=== PATIENT | male | born 1970 | race Caucasian/White ===

== ENCOUNTER 2017-12-13 10:32 | Emergency (ER) | payer OTHER ==
[~2017-12-13] VITALS: Ht 182.9 cm; Wt 81.6 kg
[~2017-12-13 10:32] MED LIST: CYCLOBENZAPRINE10 M1 PO; NAPROXEN500 M2 PO
[2017-12-13] MEDS ORDERED: METHADONE10 MG/1 M2 PO (11:28)
[2017-12-13] MEDS ORDERED: TRAZODONE HCL100 M1 PO (11:28)
[2017-12-13] MEDS ORDERED: HYDROXYZINE PAM50 M1 PO (11:29)
--- NOTE | 2017-12-13 11:41 | ED THROAT/DENTAL COMPLAINT ---
History of Present Illness General Chief Complaint: General Adult Stated Complaint: ? FB IN THROAT Source: patient Exam Limitations: no limitations Vital Signs & Intake/Output Vital Signs & Intake/Output Vital Signs Date Time Temp Pulse Resp B/P B/P Pulse O2 O2 Flow FiO2 Mean Ox Delivery Rate 12/13 1441 98.2 58 18 134/75 98 Room Air 12/13 1139 Room Air 12/13 1048 97.5 81 16 151/83 96 Room Air Allergies Coded Allergies: No Known Allergies (11/19/17) Reconcile Medications Hydroxyzine Pamoate 50 MG CAPSULE 1 CAP PO BID MENTAL HEALTH (Reported) Methadone HCl 10 MG/ML ORAL.CONC 90 MG PO DAILY MAINTENCE (Reported) Trazodone HCl 100 MG TABLET 1 TAB PO QPM SLEEP (Reported) Triage Note: PT STATES THAT HE HAS SOMETHING LODGED IN HIS THROAT. PT STATES THAT IT FEELS SHARP AND HE CAN FELL IT. PT STATES "I ATE 2 DAYS AGO AND FELT LIKE I SWALLOWED A PIECE OF METAL AND I TRIED TO MAKE MYSELF THROW UP BUT COULD NOT" PT STATES THAT HE JUST CAME FROM GETTING HIS METHADONE. Triage Nurses Notes Reviewed? yes Onset: Abrupt Duration: day(s):, constant, continues in ED Timing: recent history Severity: moderate, severe No Modifying Factors: none HPI: 47-year-old male comes into emergency room with complaints of feeling like something stuck in his throat. Patient reports that the other day he was eating him and felt a pain when he swallows like there was something possibly in there. Since then he has had the pain on the right side of his neck and it hurts when he swallows. He reports he feels like it swollen. Denies any fever chills vomiting. Denies any other associated symptoms. (Edwin Robertson) Past History Travel History Traveled to [place] past 21 day No Medical History Any Pertinent Medical History? see below for history Neurological: TIA Respiratory: asthma Psychiatric: opioid dependence Cancer(s): TESTICULAR CANCER Surgical History Surgical History: non-contributory Psychosocial History What is your primary language [place]dean Tobacco Use: Current Daily Use Daily Tobacco Use Amount/Type: => 5 Cigarettes daily Family History Hx Contributory? No (Edwin Robertson) Review of Systems Review of Systems Constitutional: Reports: no symptoms. EENTM: Reports: see HPI. Respiratory: Reports: no symptoms. Cardiovascular: Reports: no symptoms. GI: Reports: no symptoms. Genitourinary: Reports: no symptoms. Musculoskeletal: Reports: no symptoms. Skin: Reports: no symptoms. Neurological/Psychological: Reports: no symptoms. Hematologic/Endocrine: Reports: no symptoms. Immunologic/Allergic: Reports: no symptoms. All Other Systems: Reviewed and Negative (Edwin Robertson) Physical Exam Physical Exam General Appearance: well developed/nourished, no apparent distress, alert Head: atraumatic, normal appearance Eyes: Bilateral: normal appearance. Nose: normal inspection Mouth/Throat: normal mouth inspection, pharynx normal Neck: normal inspection, supple, full range of motion, trachea midline, tenderness right anterior neck Cardiovascular/Respiratory: no respiratory distress Back: normal range of motion Neurologic/Psych: awake, alert, oriented x 3 Skin: intact, normal color Core Measures ACS in differential dx? No Sepsis Present: No Sepsis Focused Exam Completed? No (Edwin Robertson) Progress Differential Diagnosis: carious tooth, epiglottitis, Ludwigs angina, odontogenic abscess, dixon-tonsillar abscess, esophogeal abrasion, foreign body, strep pharyngitis, Plan of Care: Orders Procedure Date/time Status COMPREHENSIVE METABOLIC PANEL 12/13 1311 Complete CBC WITHOUT DIFFERENTIAL 12/13 1311 Complete Laboratory Tests 12/13/17 1345: Anion Gap 12, Estimated GFR > 60, BUN/Creatinine Ratio 15.6, Glucose 93, Calcium 9.8, Total Bilirubin 0.6, AST 36, ALT 55, Alkaline Phosphatase 98, Total Protein 6.9, Albumin 4.0, Globulin 2.9, Albumin/Globulin Ratio 1.4, CBC w Diff NO MAN DIFF REQ, RBC 5.07, MCV 83.9, MCH 28.7, MCHC 34.3, RDW 13.9, MPV 7.3 L, Gran % 73.3, Lymphocytes % 19.1 L, Monocytes % 5.7, Eosinophils % 1.4, Basophils % 0.5 , Absolute Granulocytes 7.4 H, Absolute Lymphocytes 1.9, Absolute Monocytes 0.6 , Absolute Eosinophils 0.1, Absolute Basophils 0 Diagnostic Imaging: Viewed by Me: CT Scan. Discussed w/RAD: CT Scan. Radiology Impression: PATIENT: KAREEN DUFF PRESENT AGE: 47 PATIENT ACCOUNT NO: [id number] : 70 LOCATION: [facility] ORDERING PHYSICIAN: Edwin THAKKAR SERVICE DATE: 12/13/17 EXAM TYPE : CAT - CT NECK WO IV CONTRAST EXAMINATION: CT NECK WITHOUT CONTRAST CLINICAL INFORMATION: Assess for foreign body. Pain with swallowing. COMPARISON: None TECHNIQUE: CT scanning of the neck was performed without contrast. Coronal and sagittal reformatted images were acquired. DLP: 466 mGy-cm FINDINGS: No radio opaque foreign bodies are visualized. The free edge of the epiglottis is mildly thickened. There is no evidence of airway compromise. There is slight asymmetric effacement of the right pyriform sinus relative to the left which appears due to apposition of mucosal surfaces. No cervical adenopathy. The imaged oral cavity is unremarkable. The parotid and submandibular glands are symmetric in attenuation without inflammatory change. No discrete thyroid lesions are visualized. No upper mediastinal adenopathy. The lung apices are clear. The aortic arch appears normal in caliber. The imaged orbits are normal. The visualized intracranial compartment is unremarkable. The cerebellar tonsils are normally positioned. No acute osseous abnormalities. There is moderate sclerosis and wall thickening involving the left sphenoid air cell with aerosolized secretions within it. The left sphenoid ostium is patent. Otherwise the visualized paranasal sinuses appear clear. The patient is edentulous. The mastoid air cells and middle ear cavities are clear. The temporomandibular joints articulate normally. There is mild multilevel cervical spondylosis without evidence of high-grade bony canal stenosis. IMPRESSION: 1. No evidence of radiopaque foreign body in the visualized aerodigestive tract. 2. Mild thickening of the free edge of the epiglottis, possibly reflecting a mild epiglottitis. 3. No cervical adenopathy. DICTATED BY: Nohemy Harvey MD DATE/TIME DICTATED:12/13/171204 NAIL MAKER:KIMBERLY DATE/TIME TRANSCRIBED:1204 CONFIDENTIAL, DO NOT COPY WITHOUT APPROPRIATE AUTHORIZATION. < Electronically signed in Other Vendor System> SIGNED BY: Nohemy Harvey MD 12/13/17 1213 (Edwin Robertson) Departure Departure Disposition: HOME OR SELF CARE Condition: Stable Clinical Impression Primary Impression: Throat pain Secondary Impressions: Epiglottitis Referrals: Sabrina LOZANO,Elo Unknown (PCP/Family) Additional Instructions: Go directly to ENT throat office. Return if any concerns worsening symptoms. Please go over all results of today's visit with your primary care doctor. Contact your primary care doctor to let them know you were here in the emergency room. There may be nonspecific findings which may not be related to your visit today here in the emergency room but may require further evaluation and chronic monitoring by your primary care doctor. If you had a laceration today the chance of foreign body always remains. You should follow-up with your primary care doctor for recheck in 3-5 days for a wound check. If you had an x-ray done there is a chance that a fracture could have been missed on initial read and you should follow-up with your primary care doctor for repeat x-rays if symptoms persist. If your blood pressure was elevated here in the emergency room please have rechecked by [facility] primary care doctor within the next 48. If you were prescribed a narcotic here in the emergency room or any type of controlled substances you're not allowed to drive while taking this medication or operate any type of heavy machinery. Narcotics can make you feel lightheaded dizziness nausea and can cause constipation. You may need to pickle solution maker a stool softener. Thank you for choosing [facility] emergency room. Please return to the emergency room immediately if you have any other concerns worsening of symptoms. Departure Forms: Customer Survey General Discharge Information Comments 12/13/2017 4:49:38 PM Patient clinically looks well. He is no respiratory distress. No evidence of airway compromise. Spoke with Dr. Bennett from ear nose and throat doctor. They can see the patient today in the office. No white count. Patient was discharged immediately and told to go directly to ENT doctor provided on discharge instructions and that ear nose and throat doctor will provide an evaluation with a scope there in the office to better evaluate. (Edwin Robertson) PA/ARTIFICIAL INSEMINATION TECHNICIAN Co-Sign Statement Statement: ED Attending supervision documentation- I saw and evaluated the patient. I have also reviewed all the pertinent lab results and diagnostic results. I agree with the findings and the plan of care as documented in the PA's/ARTIFICIAL INSEMINATION TECHNICIAN's documentation. x I have reviewed the ED Record and agree with the PA's/ARTIFICIAL INSEMINATION TECHNICIAN's documentation. [] Additions or exceptions (if any) to the PAs/ARTIFICIAL INSEMINATION TECHNICIAN's note and plan are summarized below: [] (Aisha LOZANO,Abilio)
--- NOTE | 2017-12-13 12:13 | CT SCAN REPORT ---
EXAMINATION: CT NECK WITHOUT CONTRAST CLINICAL INFORMATION: Assess for foreign body. Pain with swallowing. COMPARISON: None TECHNIQUE: CT scanning of the neck was performed without contrast. Coronal and sagittal reformatted images were acquired. DLP: 466 mGy-cm FINDINGS: No radio opaque foreign bodies are visualized. The free edge of the epiglottis is mildly thickened. There is no evidence of airway compromise. There is slight asymmetric effacement of the right pyriform sinus relative to the left which appears due to apposition of mucosal surfaces. No cervical adenopathy. The imaged oral cavity is unremarkable. The parotid and submandibular glands are symmetric in attenuation without inflammatory change. No discrete thyroid lesions are visualized. No upper mediastinal adenopathy. The lung apices are clear. The aortic arch appears normal in caliber. The imaged orbits are normal. The visualized intracranial compartment is unremarkable. The cerebellar tonsils are normally positioned. No acute osseous abnormalities. There is moderate sclerosis and wall thickening involving the left sphenoid air cell with aerosolized secretions within it. The left sphenoid ostium is patent. Otherwise the visualized paranasal sinuses appear clear. The patient is edentulous. The mastoid air cells and middle ear cavities are clear. The temporomandibular joints articulate normally. There is mild multilevel cervical spondylosis without evidence of high-grade bony canal stenosis. IMPRESSION: 1. No evidence of radiopaque foreign body in the visualized aerodigestive tract. 2. Mild thickening of the free edge of the epiglottis, possibly reflecting a mild epiglottitis. 3. No cervical adenopathy.
[2017-12-13 13:51] LABS: ABSOLUTE BASOPHIL COUNT 0 /CUMM (0.0-0.2); ABSOLUTE EOSINOPHIL COUNT 0.1 /CUMM (0.0-0.7); ABSOLUTE GRANULOCYTE CT 7.4 /CUMM (1.4-6.5); ABSOLUTE LYMPH COUNT 1.9 /CUMM (1.2-3.4); ABSOLUTE MONOCYTE COUNT 0.6 /CUMM (0.10-0.60); BASOPHIL % 0.5 % (0.0-2.0); EOSINOPHIL % 1.4 % (0-5); GRANULOCYTE % 73.3 % (42.2-75.2); HEMATOCRIT 42.6 % (42-52); MEAN CORPUSCULAR HGB 28.7 PG (27.0-31.0); MEAN CORPUSCULAR HGB CONC 34.3 G/DL (33.0-37.0); MEAN CORPUSCULAR VOLUME 83.9 FL (80.0-94.0); MEAN PLATELET VOLUME 7.3 FL (7.4-10.4); PLATELET COUNT 251 /CUMM (130-400); RBC DISTRIBUTION WIDTH 13.9 % (11.5-14.5); RED BLOOD CELL CT 5.07 /CUMM (4.70-6.10); WHITE BLOOD CELL COUNT 10.1 /CUMM (4.8-10.8)
[2017-12-13 14:41] VITALS: BP 134/75
== END 2017-12-13 15:58 ==
LOC: ERH 10:32
PROVIDERS: Physician Assistant Medical
DX: J05.10 Acute epiglottitis without obstruction (principal); R07.0 Pain in throat; Z72.0 Tobacco use